=== PATIENT | male | born 1990 | race Caucasian/White ===

== ENCOUNTER 2020-01-23 09:17 | Emergency (ER) | payer BC, OTHER ==
[~2020-01-23] VITALS: Ht 170.2 cm; Wt 77.3 kg
[2020-01-23 09:45] VITALS: BP 144/95
== END 2020-01-23 10:10 | disposition home or self-care (01) ==
LOC: ER 09:17
DX: R51.9 Headache, unspecified (principal); R50.9 Fever, unspecified; R09.89 Other specified symptoms and signs involving the circulatory and respiratory systems; R43.8 Other disturbances of smell and taste; Z20.828 Contact with and (suspected) exposure to other viral communicable diseases
CPT/HCPCS: 36415; 87635; 99283